=== PATIENT | male | born 1955 | race Caucasian/White ===

== ENCOUNTER 2018-09-12 12:29 | Emergency (ER) | payer OTHER, SELFPAY ==
[2018-09-12 12:30] VITALS: BP 140/93; PULSE 78; RESP 16; TEMP 37.1; O2SAT 98; BMI 29.9
--- NOTE | 2018-09-12 12:36 | VDLE_ITS ---
Reason For Study: LLE edema Procedure LEFT Exam performed portable in ED. GSV is normal. The study was technically difficult. CFV is compressible, spontaneous, phasic, A preliminary report was called and/or faxed competent, and demonstrates normal to Dr. Peña & ED. augmentation. FV is compressible, spontaneous, phasic, competent and demonstrates normal augmentation. POP V is compressible, spontaneous, phasic, competent and demonstrates normal augmentation. T/P Trunk is compressible. PTV is compressible. PerV is non compressible and dilated. Interpretation Summary Acute deep venous thrombosis left peroneal vein, no evidence for proximal progression. Patent and compressible left great saphenous vein Ordering Physician: Jose Luis Funes Referring Physician: Be Olson Performed By: Mone Cartre, RDCS, RVT
--- NOTE | 2018-09-12 12:41 | RAD_ITS ---
STUDY: X-RAY - LEFT KNEE REASON FOR EXAM: Male, 62 years old. Pain and edema TECHNIQUE: 4 view(s) of the knee. COMPARISON: None. FINDINGS: Normal visualized distal femur. Normal visualized proximal tibia and fibula. Normal proximal tibiofibular articulation. Normal medial femorotibial compartment. Normal lateral femorotibial compartment. There is mild degenerative arthrosis of the patellofemoral articulation. There is a soft tissue prominence in the suprapatellar region suggesting a small volume joint effusion. The soft tissue structures are unremarkable. RAD/Knee 4 or More Views IMPRESSION: No acute findings other than small effusion. Mild degenerative changes of the patellofemoral joint Electronically Signed: Omero Corral DO at 13:17 EDT Tel , Service support ,
--- NOTE | 2018-09-12 13:28 | ED.VISSUMM ---
- ER Visit Summary Date of Service: 09/12/18 Chief Complaint: Left lower extremity edema History of Present Illness: The patient is a 62 M with history of DVT after prolonged sitting about 4 years ago presents with edema of his left lower extremity. There is no history of trauma or sedentary period. He has no chest pain or shortness of breath. He has no fever or chills the leg is not red. Physical Examination: Patient is clear lungs bilaterally regular rate. He has slight edema over the left lower extremity he also has some tenderness over his left knee with a very small effusion. There is no laxity on anterior posterior medial lateral stressors. ] Emergency Department Course and Treatment: Ultrasound is negative for DVT. X-ray shows a slight effusion. Reexamination of the knee again it does not show any erythema or calor compared to the other side. Patient has full range of motion. Likely has osteoarthritis with an effusion from overuse. There are no indications for arthrocentesis. I will discharge the patient in stable condition. Disposition: Discharge stable condition Impression: Left knee arthritis Left lower extremity edema This note was generated with [employer] dictation software. It may contain incorrect words, spelling, and punctuation that were not noted in review of the chart prior to signing ED Disposition - Plan for ED Patient: Disposition: Home or Assisted Living Instructions: ED Leg Swelling Unilateral, What Is Arthritis? Prescriptions: Naproxen [Naprosyn] 500 mg PO BID PRN #20 tab Referrals: Be Olson III, MD [Primary Care Provider] - 3-5 Days
--- NOTE | 2018-09-12 13:35 | ED.DCSUM_ITS ---
- ER Visit Summary Date of Service: 09/12/18 Chief Complaint: Left lower extremity edema History of Present Illness: The patient is a 62 M with history of DVT after prolonged sitting about 4 years ago presents with edema of his left lower extremity. There is no history of trauma or sedentary period. He has no chest pain or shortness of breath. He has no fever or chills the leg is not red. Physical Examination: Patient is clear lungs bilaterally regular rate. He has slight edema over the left lower extremity he also has some tenderness over his left knee with a very small effusion. There is no laxity on anterior posterior medial lateral stressors. ] Emergency Department Course and Treatment: Ultrasound is negative for DVT. X- ray shows a slight effusion. Reexamination of the knee again it does not show any erythema or calor compared to the other side. Patient has full range of motion. Likely has osteoarthritis with an effusion from overuse. There are no indications for arthrocentesis. I will discharge the patient in stable condition. Disposition: Discharge stable condition Impression: Left knee arthritis Left lower extremity edema This note was generated with [employer] dictation software. It may contain incorrect words, spelling, and punctuation that were not noted in review of the chart prior to signing ED Disposition - Plan for ED Patient: Disposition: Home or Assisted Living Instructions: ED Leg Swelling Unilateral, What Is Arthritis? Prescriptions: Naproxen [Naprosyn] 500 mg PO BID PRN #20 tab Referrals: Be Olson III, MD [Primary Care Provider] - 3-5 Days
[2018-09-12 13:48] VITALS: PULSE 74; RESP 16; O2SAT 98
== END 2018-09-12 13:49 | disposition home or self-care (01) ==
PROVIDERS: Emergency Provider Emergency Medicine; Family Provider Family Medicine; PCP Family Medicine
DX: R60.0 Localized edema (principal); M17.12 Unilateral primary osteoarthritis, left knee; Z86.718 Personal history of other venous thrombosis and embolism
CPT/HCPCS: 73564; 93971; 99282

== ENCOUNTER 2022-06-12 05:35 | Day surgery (SDC) | payer SELFPAY, OTHER ==
[2022-06-12] VITALS (11 sets, daily range): BP systolic 101–147; BP diastolic 64–94; PULSE 51–77; RESP 14–16; TEMP 36.4–36.9; O2SAT 93–97; BMI 29.8
[2022-06-12] MEDS: Lactated Ringers 1,000 ML 15 ML IV ×3 (06:41→13:00)
--- NOTE | 2022-06-12 07:15 | HP.PCM_ITS ---
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 Is patient in pain?: No Allergies Penicillins Allergy (Verified 04/23/22 13:17) Unknown Medications naproxen 500 mg tablet 500 mg PO BID PRN #20 tabs 09/12/18 [Rx Confirmed 04/23/22] atenolol 50 mg tablet 50 mg PO DAILY 04/23/22 [History Confirmed 04/23/22] hydrochlorothiazide 12.5 mg capsule 12.5 mg PO DAILY 04/23/22 [History Confirmed 04/23/22] sertraline 100 mg tablet (Zoloft) 100 mg PO DAILY 04/23/22 [History Confirmed 04/23/22] tamsulosin 0.4 mg capsule 0.4 mg PO DAILY 04/23/22 [History Confirmed 04/23/22] PFSH Surgical History?(Updated 04/23/22 @ 13:16 by Sheila Friday) History of ear surgery History of hernia repair Social History?(Updated 04/23/22 @ 13:16 by Sheila Friday) Smoking Status:? Current every day smoker substance use type:? does not use HPI HPI HPI: 66-year-old gentleman who is referred by Anita Bryan CNP and a written copy of my surgical consult and recommendations will be returned to her.? I have previously assisted the patient with an umbilical herniorrhaphy.? The patient is complaining of some bulging tenderness at that site.? This presentation is complicated by fatigue and depression The patient recants that I have previously assisted him with a ventral hernia repair with mesh.? He cannot remember exactly when but states it was many years ago.? At least for the last year he has noted bulging.? He intermittently will have diffuse abdominal pain.? He does not particularly localize it but points to generalized mid abdomen.? He states sometimes it can last for a couple weeks and suddenly disappear.He denies bright red blood per rectum or melena.? He has not had any imaging of his abdomen. He has been placed on Zoloft for his depression and he is already feeling better. ROS General General: Yes fatigue; No weight change, appetite, colon cancer, breast cancer or weakness HEENT HEENT: No difficulty swallowing, eye injury, eye surgery, swollen glands or hoar seness Endo Endocrine: No thyroid disease, diabetes mellitus, thyroid cancer, Hair loss, heat intolerance or cold intolerance Skin Skin: No rash or changing moles Musc Musculoskeletal: No back problems, arthritis, rheumatoid arthritis, gout or joint pain Cardio Cardiovascular: Yes heart disease and high blood pressure; No murmur, pacemaker, atrial fibrillation, heart attack, heart stent, palpitations, shortness of breat with exertion or chest pain Psych Psychiatric: Yes depression and anxiety; No hearing voices Resp Respiratory: No shortness of breath, No sleep apnea, No cough, No COPD, No asthma, No emphysema and No wheezing Gastro Gastrointestinal: Yes abdominal pain, No nausea or vomiting, No diarrhea, No constipation, No blood in stool, No acid reflux, No hemorrhoids, No ulcers, No gallbladder problem and No black,tarry stools Immanuel Hematologic: No blood thinners, No blood disorders, No bleeding, No anemia and Yes blood clots Additional Details: Hx left DVT Neuro Neurologic: No system reviewed and no additional complaints, except as documented, No as per HPI, No abnormal gait, No abnormal hearing, No abnormal movements, No abnormal speech, No behavioral changes, No burning sensations, No confusion, No convulsions, No disequilibrium, No dizziness, No localized weakness, No frequent falls, No headache(s), No lack of coordination, No loss of vision, No memory loss, No numbness, No other visual disturbances, No radicular pain, No restless legs, No sensory deficit, No syncope, No tingling, No tremor(s), No weakness and No other Exam Const General: cooperative, healthy appearing, comfortable and no acute distress [facility] Head: normal to inspection Eyes General: appearance normal, both eyes and all related structures Neck Neck: normal visual inspection Chest Chest palpation & inspection: normal inspection of the chest Resp Effort & Inspection: normal respiratory effort Auscultation: clear to auscultation bilaterally Cardio Rate: regular rate Rhythm: regular rhythm GI Palpation: soft and no hepatosplenomegaly Other: Transverse incision approximately 10 cm superior to the umbilicus and inferior to this there is a 7 x 7 cm soft tissue rubbery mass.? It is not reducible.? Slightly tender to deep palpation Musc Cervical Spine: normal cervical lordosis Skin General: no rashes or lesions noted Neuro General: patient alert, patient awake and patient oriented x3 Extrem General: no calf tenderness Psych Appearance: grossly normal Assessment and Plan Assessment and Plan (1) Recurrent incisional hernia with incarceration: ?Status:?Acute (2) History of DVT of lower extremity: ?Status:?Chronic ?Comment: Left Plan I believe this patient has a recurrent incarcerated ventral incisional hernia.? Cannot exclude possible bowel involvement.? I am suspicious that the patient's previous bouts of generalized abdominal pain may actually reflect symptomatic problems with this hernia.? I have proposed for him a laparoscopic recurrent ventral incisional herniorrhaphy with mesh.? I would plan on using a bilateral transverses abdominal plane block.? May need to make a small incision overlying the defect area to assist with reduction.? He is aware of the technique, benefit, risk, alternatives.? Depending upon the complexity of the procedure he may require observation. I am recommending that this be performed in an elective setting.? I am suspicious that this has potentially been the cause of his previous bouts of abdominal pain.? The patient also is very active and had DVTs related to sitting in a tree stand and hunting.? His physical activity places him at increased risk and elective repair would be pertinent.? He has had an opportunity ask and have questions answered.? He desires to proceed as noted.? I appreciate the opportunity of continue to help with the surgical care Copy: Ainta Bryan, BRYAN Olson M.D., F.A.C.S. I have examined the patient and the H&P has been reviewed. There are no clinical changes since date of exam. Teo Olson M.D., F.A.C.S.
--- NOTE | 2022-06-12 07:16 | DCINST_ITS ---
Discharge Instructions Procedure General Surgery Diet Discharge Diet: Light diet - advance as tolerated (if you have questions about your diet instructions, please talk to you doctor.) Activity Discharge Activity: May Not Drive (for 3-5 days or while taking narcotic pain medicine.) May shower in (days): 1 Lifting Restrictions: 10 pounds Dressing / Incision Call your doctor if your incision/area has: Continuous Slow Oozing, Sudden Increased Bleeding, Increased Pain/ Swelling, Increased Redness and Foul Smelling Discharge Call your doctor if you observe: Fever of 101 or Higher Suture Line Care: Avoid Pulling/Pushing and Avoid Pinching/Bending Additional Dressing/Incision Instructions:: Change or remove dressing in 4 days. Leave steri-strips in place for 1 week. Follow Up Care Please Follow Up With: Teo Olson MD When: Call [phone] to make an appointment to be seen in about 10 days. Test Results: Test results from this visit will be discussed in further detail at your follow- up appointment, if applicable. Discharge Plan Admission Attending Provider: Teo Olson Primary Care Provider: Anita Bryan Discharge Orders/Prescriptions Prescriptions: No Action sertraline [Zoloft] 100 mg tablet 100 mg PO DAILY tamsulosin 0.4 mg capsule 0.4 mg PO DAILY hydrochlorothiazide 12.5 mg capsule 12.5 mg PO DAILY atenolol 50 mg tablet 50 mg PO DAILY naproxen 500 MG tablet 500 mg PO BID PRN Qty: 20 0RF Prostate Health Formula [id number] mg Tablet 3 tab PO DAILY Referrals / Follow Up: Anita Bryan NP-C [Primary Care Provider] - Disposition Disposition (needs filled in before D/C Order can be placed): Home, Self Care
--- NOTE | 2022-06-12 07:30 | HERN_PTH ---
PATIENT: BUSTER VALENCIA LOC: [facility] [place] U#:[id number] AGE/SX: 66/M ROOM: RE06/12/[address]: Dr. Teo Olson MD : 1955 BED: DIS: 06/12/2022 SPEC #: [id number] RECD: 06/12/22 12:33 STATUS: ЕЛЕНА RETodd #: [id number] ANGI: 06/12/22 07:[address]: Teo Olson DEPT: SURGICAL PATHOLOGY RECD BY: Khadra Le ENTERED: 06/13/22 08:58 SP TYPE: Hernia OTHR DR: NILTON Chavarria Tissues: HERNIA Procedures: Surgery Specimen Level II HEADER OPERATION: Laparoscopic recurrent ventral incisional incarcerated hernia PRE-OP DIAGNOSIS: Recurrent incisional hernia with incarceration, history of lower extremity DVT TISSUE SUBMITTED: Hernia sac and contents MICROSCOPIC DIAGNOSIS Hernia sac and contents: Pieces of fibroadipose and fibroconnective tissue, consistent with hernia sac and contents. Focal mild chronic inflammation. JG:misael 06/14/2022 MICROSCOPIC DESCRIPTION Slides are reviewed. GROSS DESCRIPTION Received in fixative is one container labeled with the patient's name and designated hernia sac and contents. The specimen consists of sac-like yellow adipose tissue measuring 5 cm in length and 4 cm in diameter. No mass lesion is noted. Also present in the container is a piece of adipose tissue measuring 6 x 6 x 3 cm. Sections of the adipose tissue do not reveal any mass lesion. Project Manager Finance sections are submitted in two cassettes. / JG:misael 06/13/2022 TC:5 CPT: 94866
[2022-06-12] MEDS: Clindamycin 900 MG/50 ML BAG 75 MG IV (07:32)
[2022-06-12] MEDS: Bupivacaine 0.25% 30 ML Vial (08:47)
[2022-06-12] MEDS: BUPIVACAINE LIPOSOME/PF 20 ML VIAL OPERA.SITE (08:47)
--- NOTE | 2022-06-12 09:06 | OP.PCM_ITS ---
Report of Operation Date of Procedure: 06/12/22 Pre-Operative Diagnosis: Recurrent incarcerated ventral incisional hernia Post-Operative Diagnosis: Same Surgery/Procedure Performed:: Laparoscopic recurrent ventral incisional herniorrhaphy with 17.8 x 22.[address] mesh Bilateral transverses abdominal plane block Reference #[id number], lot [id number], expiry date 09/24/2022 Description of Surgical Findings:: Timeout informed consent was obtained. 66-year-old gentleman was taken to the operating placed upon the table underwent general endotracheal intubation esthesia. Clindamycin 900 mg were given intravenously. The abdomen was sterilely prepped and draped. Ioban draping was used as well. 20 cc of Exparel mixed with 60 cc of 0.25% Marcaine diluted out with saline to 100 cc. This was used for local anesthesia and was used for the transversus abdominal pain block. Initially tried in the left upper quadrant and I tried in the right upper quadrant to get a Visiport access did not seem to be progressing well so I elected to leave this trochars then made a transverse incision inferior to the previous 1 and then identified the incarcerated omentum within a very thick walled sac dissected that free opened the sac transected the omentum with electrocautery allow the remainder of the omentum to fall back within that I excised the sac with electrocautery I used 0 Nurolon to approximate the 4 cm defect placing this on catheter and insufflated the abdomen with CO2 and inspected the 2 previous Visiport sites they had not gone through the fascia so I completed that added 2 more 5 mm ports in the lower abdomen bilaterally. There was some adhesions of omentum to the previous placed Ventralex mesh but these were easily transected and were minimal in nature. I incised the falciform ligament to get more distance. I then placed a ventral light ST mesh with 4 corner sutures of 2-0 Prolene made sure that the nonadherent side was adjacent the omentum pulled the Prolene sutures up in a parachute fashion with a grainy needle and secured that there was absolutely excellent positioning of the mesh I then further secured the mesh at the periphery at 2 cm intervals with secure strap and I obliterated any potential space seroma space with a suture strip firmly adhering the mesh. I used saline to activate the surface and irrigated the mesh. I placed the greater omentum overlying the small bowel. Then under laparoscopic visualization I performed a bilateral transverses abdominal plane block. That also seemed to progress very nicely. The abdomen was allowed to deflate through an antiviral valve. The fascia at the supraumbilical ventral hernia site was continued to be closed with simple sutures of 0 Nurolon until I had complete closure. A couple 0 Vicryl sutures were placed into the subcutaneous tissue to occlude space. All skin edges were then approximated with simple running sutures of 4-0 Monocryl. Steri- Strips Telfa OpSite dressings applied. Sponge and instrument and needle counts were reported to the surgeon to be correct. Specimens hernia contents and sac. Drains none. Blood loss minimal. The patient was taken to the recovery room in satisfactory addition without apparent complication Teo Olson M.D., F.A.C.S. Surgeon: Teo Olson Type of Anesthesia: Block,Regional and General Anesthesiologist: Jovany Jones
[2022-06-12] MEDS: Tamsulosin HCl 0.4 MG Capsule PO (13:29)
--- NOTE | 2022-06-12 15:36 | SUR.PHASEII ---
PATIENT POST-OP 5 HOURS, HAS BEEN UNABLE TO VOID. HAS AMBULATED FREQUENTLY IN HALLWAY, DRINKING FLUIDS. BLADDER SCAN FOR 584 ML URINE. PATIENT DENIES URGE TO VOID BUT CAN FEEL PRESSURE OVER BLADDER w/ PALPATION. DR PEREZ NOTIFIED, ORDERED TO INSERT CONDON CATH & D/C HOME. MAY D/C CONDON CATHETER AT HOME VERY EARLY FRIDAY MORNING 06/12, CALL DR PEREZ'S OFFICE EARLY IF UNABLE TO URINATE, MUST COME TO MD OFFICE THAT MORNING IF UNABLE TO URINATE. *DO NOT GO TO EMERGENCY ROOM IF UNABLE TO VOID*
--- NOTE | 2022-06-12 16:40 | SUR.PHASEII ---
16 UKRA[place] CONDON CATH PLACED PER ORDER D/T POST-OP URINARY RETENTION, SOME RESISTANCE NOTED AT THE PROSTATE BUT OTHERWISE INSERTED WITHOUT DIFFICULTY; PATIENT DENIES PAIN AFTER PROCEDURE COMPLETE. DRAINING FREELY, MOSTLY CLEAR YELLOW w/ SOME PINK HEMATURIA AFTER BLADDER DRAINED 1,000+ ML YELLOW URINE. DID EXTENSIVE CONDON CARE & REMOVAL INSTRUCTIONS WITH PATIENT & WHO BOTH VERBALIZE UNDERSTANDING. REINFORCED NEED TO D/C CONDON CATH NO LATER THAN 0600 ON 06/14/22 PER WRITTEN & KRAMES INSTRUCTIONS, DRINK PLENTY OF FLUIDS AND TAKE DAILY MEDS ORDERED. REINFORCED IF UNABLE TO VOID BY 1000, CALL DR PEREZ'S OFFICE IMMEDIATELY AND SCHEDULE OFFICE APPT FOR THAT DAY TO HAVE CONDON CATH REINSERTED IN THE OFFICE. PER DR PEREZ INSTRUCTION, PATIENT *SHOULD NOT GO TO THE EMERGENCY DEPARTMENT IF UNABLE TO VOID.* UNDERSTANDING VERBALIZED & AGREEABLE.
== END 2022-06-12 17:22 | disposition home or self-care (01) ==
LOC: SDC 05:41 → AC 05:41
PROVIDERS: PCP Nurse Practitioner Family; Referring Provider Surgery; Visit Provider Surgery
PROC: 0WQF4ZZ Repair Abdominal Wall, Percutaneous Endoscopic Approach (ICD-10-PCS; CPT 49657; principal; 2022-06-12 07:10)
DX: K43.0 Incisional hernia with obstruction, without gangrene (principal); I10 Essential (primary) hypertension; F32.A Depression, unspecified; F17.200 Nicotine dependence, unspecified, uncomplicated; Z79.899 Other long term (current) drug therapy; Z86.718 Personal history of other venous thrombosis and embolism
CPT/HCPCS: 49657; 00832; 88302; J7120; C1781; J2405

== ENCOUNTER 2022-06-22 18:24 | Emergency (ER) | payer OTHER, SELFPAY ==
[2022-06-22 18:25] VITALS: BP 174/95; PULSE 82; RESP 18; TEMP 36.6; O2SAT 98; BMI 30.5
--- NOTE | 2022-06-22 19:12 | EX.ED.GUMALE ---
HPI History of Present Illness Chief Complaint: Complaint Narrative Narrative: 66-year-old male with chief complaint of dysuria. He states he called his urologist Dr. Riley stating he had a UTI. He states he was told to come in and drop a urine sample off. He states he dropped it off in office on . He is not had any systemic signs or symptoms. No nausea or vomiting. No abdominal pain. Patient presents requesting a prescription for antibiotics because the nurse practitioner on-call sent him to the emergency room. [facility] Medical History Back pain Cardiology follow-up encounter Chest pain DVT (deep venous thrombosis) History of echocardiogram History of edema History of irregular heartbeat History of steroid therapy History of stress test Leg cramps Smoker Urinary retention Wears dentures Wears hearing aid Home Medications naproxen 500 mg tablet 500 mg PO BID PRN #20 tabs 09/12/18 [Rx Last Taken Unknown] atenolol 50 mg tablet 50 mg PO DAILY 04/23/22 [History Last Taken 06/12/22] hydrochlorothiazide 12.5 mg capsule 12.5 mg PO DAILY 04/23/22 [History Last Taken 06/12/22] sertraline 100 mg tablet (Zoloft) 100 mg PO DAILY 04/23/22 [History Last Taken Unknown] tamsulosin 0.4 mg capsule 0.4 mg PO DAILY 04/23/22 [History Last Taken Unknown] saw [id number] 333 mg-100 mg-33 mg-33 mg tablet 3 tab PO DAILY 06/05/22 [History Last Taken Unknown] hydrocodone-acetaminophen 5-325mg 5mg-325mg 1 tab PO Q6H PRN pain 3 days #10 tabs 06/12/22 [Rx Last Taken Unknown] cephalexin 500 mg capsule 500 mg PO Q12 #14 caps 06/22/22 [Rx Last Taken Unknown] Allergy/AdvReac Type Severity Reaction Status Date / Time Penicillins Allergy Unknown Verified 06/22/22 18:27 Surgical History History of ear surgery History of hernia repair Social History Smoking Status: Light Smoker (<10/day) substance use type: does not use ROS ROS ED Constitutional Constitutional ED: Denies chills Eyes Eyes: Denies blurry vision or change in vision ENT ENT ED: Denies ear pain or sore throat Cardiovascular Cardiovascular: Denies chest pain, palpitations or racing heartbeat Respiratory/Chest Respiratory/Chest: Denies cough, dyspnea or sputum Gastrointestinal Gastrointestinal: Denies abdominal pain, constipation, diarrhea, nausea or vomiting Genitourinary Genitourinary ED: Reports dysuria and urinary frequency; Denies hematuria Musculoskeletal Musculoskeletal: Denies arthralgias, myalgias or neck pain Integumentary Denies abscess, Abrasions or rash Neurologic Neurologic: Denies headache(s), paresthesias or weakness Psychiatric Psychiatric: Denies anxiety, depression, suicidal ideation or suicidal thoughts Endocrine Endocrinology: Denies polydipsia or polyuria EXAM Physical Exam Const Vital Signs: 06/22/22 18:25 Temperature 97.8 F Temperature Source Temporal Pulse Rate 82 Respiratory Rate 18 Blood Pressure 174/95 H Blood Pressure Mean 121 Pulse Ox 98 Oxygen Delivery Method Room Air Positive well nourished General Appearance ED: NAD; Negative for pallor HEENT Reports moist mucous membranes normocephalic Eyes PERRL and EOMs intact bilaterally General Eye ED: Negative for pale conjunctiva or scleral icterus Resp normal respiratory effort and clear to auscultation bilaterally Auscultation: Negative for rales, rhonchi or wheezes Cardio regular rate and regular rhythm no CVA tenderness Back/Spine no CVA tenderness Neuro oriented x3 and CN's II-XII intact bilaterally Psych mental status grossly normal Skin General Skin Exam: Negative for jaundice or pallor MDM MDM MDM Narrative Medical decision making narrative: 66-year-old male presenting requesting prescription for antibiotics for urinary tract infection. He had his urine tested in the [facility]. I was able to review this on [employer] and this was just a urine culture. This does show greater than 100,000 colony-forming units of Proteus mirabilis. It is sensitive to everything except Macrobid. Patient reports a history of penicillin. He does not recall his reaction because he states he was 1 years old and was happening. Patient will be started on Keflex here in the ED. Discharged home with a prescription for this. Return precautions discussed. Impression: 1. UTI Lab Data Attestation: I reviewed the patient's lab results. Discharge Plan Triage Chief Complaint: Complaint ED Provider: Jaguar Baez Dx/Rx/DC Orders Instructions: ED Urinary Tract Infections in Men Prescriptions: New cephalexin 500 mg capsule 500 mg PO Q12 Qty: 14 0RF No Action sertraline [Zoloft] 100 mg tablet 100 mg PO DAILY tamsulosin 0.4 mg capsule 0.4 mg PO DAILY hydrochlorothiazide 12.5 mg capsule 12.5 mg PO DAILY atenolol 50 mg tablet 50 mg PO DAILY naproxen 500 MG tablet 500 mg PO BID PRN Qty: 20 0RF [id number] mg Tablet 3 tab PO DAILY hydrocodone-acetaminophen 5-325 mg tablet 1 tab PO Q6H PRN (Reason: pain) 3 Days Qty: 10 0RF Primary Care Provider: Anita Bryan Referrals: Anita Bryan, [employer] [Primary Care Provider] - Disposition Disposition: Home, Self Care
[2022-06-22] MEDS: Cephalexin 250 MG Capsule 500 MG PO (19:36)
[2022-06-22 19:43] VITALS: BP 152/88; PULSE 87; RESP 16; O2SAT 97
== END 2022-06-22 20:19 | disposition home or self-care (01) ==
PROVIDERS: Emergency Provider Student in an Organized Health Care Education/Training Program; PCP Nurse Practitioner Family; Visit Provider Student in an Organized Health Care Education/Training Program
DX: N39.0 Urinary tract infection, site not specified (principal); F17.200 Nicotine dependence, unspecified, uncomplicated; Z86.718 Personal history of other venous thrombosis and embolism
CPT/HCPCS: 99283